=== PATIENT | female | born 1990 | race Caucasian/White ===

== ENCOUNTER 2017-01-17 14:53 | Emergency (ER) | payer OTHER ==
[2017-01-17 15:11] VITALS: BP 118/73
--- NOTE | 2017-01-17 15:16 | UC ---
Shoulder Pain HPI - HPI Summary HPI Summary: 26 YEAR OLD FEMALE PRESENTS WITH LEFT SHOULDER PAIN SECONDARY TO WRESTLING. - History of Current Complaint Chief Complaint: UCUpperExtremity Stated Complaint: SHOULDER INJURY Time Seen by Provider: 01/17/17 15:15 Hx Obtained From: Patient Hx Last Menstrual Period: 01/15/17 Onset/Duration: Lasting Days Timing: Constant Severity Initially: Moderate Severity Currently: Moderate Location Of Pain: Is Diffuse Pain Scale Used: 0-10 Numeric - 5 Aggravating Factor(s): Movement - Allergies/Home Medications Allergies/Adverse Reactions: Allergies Allergy/AdvReac Type Severity Reaction Status Date / Time No Known Allergies Allergy Verified 09/06/15 20:08 PMH/Surg Hx/FS Hx/Imm Hx Previously Healthy: Yes - Surgical History Surgical History: Yes Surgery Procedure, Year, and Place: Appendectomy - Family History Known Family History: Positive: None - Social History Alcohol Use: Occasionally Substance Use Type: None Smoking Status (MU): Current Every Day Smoker Type: Cigarettes Amount Used/How Often: 5 cigs/day Length of Time of Smoking/Using Tobacco: 6 years Have You Smoked in the Last Year: Yes Household Exposure Type: Cigarettes - Immunization History Most Recent Influenza Vaccination: 03/04/13 Most Recent Tetanus Shot: 03/04/13 Most Recent Pneumonia Vaccination: none Review of Systems Constitutional: Negative Skin: Negative Eyes: Negative ENT: Negative Respiratory: Negative Cardiovascular: Negative Gastrointestinal: Negative Genitourinary: Negative Motor: Negative Neurovascular: Negative Musculoskeletal: Other: - LEFT SHOULDER PAIN Neurological: Negative Psychological: Negative All Other Systems Reviewed And Are Negative: Yes Physical Exam Triage Information Reviewed: Yes Vital Signs: Initial Vital Signs Temp 36.8 C 01/17/17 15:06 Pulse 55 01/17/17 15:06 Resp 18 01/17/17 15:06 BP 118/73 01/17/17 15:06 Pulse Ox 100 01/17/17 15:06 Eye Exam: Normal ENT Exam: Normal Dental Exam: Normal Neck exam: Normal Neck: Positive: 1 Respiratory Exam: Normal Cardiovascular Exam: Normal Abdominal Exam: Normal Musculoskeletal: Positive: Other: - LEFT SHOULDER PAIN Neurological Exam: Normal Psychological Exam: Normal Skin Exam: Normal Shoulder Course/Dx - Differential Dx/Diagnosis Provider Diagnoses: LEFT SHOULDER PAIN Discharge - Discharge Plan Condition: Stable Disposition: HOME Prescriptions: Ibuprofen TAB* [Motrin TAB* 800 MG] 800 mg PO Q6H #30 tab Methocarbamol TAB* [Robaxin 500 MG TAB*] 500 mg PO TID PRN #30 tab PRN Reason: Spasms - Back Patient Education Materials: Shoulder Sprain (ED) Referrals: No Primary Care Phys,NOPCP [Primary Care Provider] - Arin Liao MD [Medical Doctor] -
--- NOTE | 2017-01-17 15:48 | RAD ---
INDICATION: Fall COMPARISON: None TECHNIQUE: Routine frontal, Y and axial views were obtained. FINDINGS: The bony structures, joint spaces, and soft tissues are normal for age. IMPRESSION: NEGATIVE EXAMINATION.
== END 2017-01-17 16:00 | disposition home or self-care (01) ==
LOC: UCEAST 14:53
DX: M25.512 Pain in left shoulder (principal); F17.210 Nicotine dependence, cigarettes, uncomplicated
CPT/HCPCS: 99212; G0463

== ENCOUNTER 2017-01-23 17:19 | Emergency (ER) | payer OTHER ==
[2017-01-23 18:08] VITALS: BP 104/75
--- NOTE | 2017-01-23 19:53 | ED ---
Upper Extremity Pain - HPI Summary HPI Summary: Patient presents to the with CC of left shoulder pain x 8 days after a wrestling injury. Denies numbness, tingling, color or temperature changes. She is otherwise healthy. She was seen last week and given a muscle relaxer as well as instructions for ibuprofen and rest. Note given for 1 week out of work. She is requesting light duty at this time. She feels the pain is located discretely over the anterior shoulder. Denies ROM limitations, but endorses pain with palpation and certain movements. Lachmans negative. Neer, yerguson and bicep tests all negative. - History of Current Complaint Chief Complaint: UCUpperExtremity Stated Complaint: recheck shoulder injury Time Seen by Provider: 01/23/17 19:26 Hx Obtained From: Patient Hx Last Menstrual Period: 01/06/17 Mechanism Of Injury: Direct Blow Onset/Duration: Started Days Ago Timing: Constant Severity Initially: Moderate Severity Currently: Moderate Pain Location: Shoulder Character: Aching Aggravating Factor(s): Movement, Flexion, Extension, Internal/External Rotation Alleviating Factor(s): Rest, Ice Associated Signs & Symptoms: Positive: Negative Related History: Similar Episode/Dx As, Dominant Hand Right - Risk Factors Non-Orthopedic Risk Factor: Negative DVT Risk Factors: Negative Septic Arthritis Risk Factor: Negative Compartment Syndrome Risk Factors: Pain - Allergies/Home Medications Allergies/Adverse Reactions: Allergies Allergy/AdvReac Type Severity Reaction Status Date / Time No Known Allergies Allergy Verified 01/23/17 18:08 PMH/Surg Hx/FS Hx/Imm Hx Previously Healthy: Yes Endocrine/Hematology History: Denies: Hx Diabetes, Hx Thyroid Disease Cardiovascular History: Denies: Hx Hypertension Respiratory History: Denies: Hx Asthma, Hx Chronic Obstructive Pulmonary Disease (COPD) GI History: Denies: Hx Ulcer - Surgical History Surgery Procedure, Year, and Place: Appendectomy - Immunization History Hx Pertussis Vaccination: No Immunizations Up to Date: Unable to Obtain/Confirm Infectious Disease History: No Infectious Disease History: Denies: Hx Clostridium Difficile, Hx Hepatitis, Hx Human Immunodeficiency Virus (HIV), Hx of Known/Suspected MRSA, Hx Shingles, Hx Tuberculosis, Hx Known/ Suspected VRE, Hx Known/Suspected VRSA, History Other Infectious Disease, Traveled Outside the [place] in Last 30 Days - Family History Known Family History: Positive: None - Social History Occupation: Employed Part-time Lives: With Family Alcohol Use: Occasionally Hx Substance Use: No Substance Use Type: Reports: None Hx Tobacco Use: Yes Smoking Status (MU): Current Every Day Smoker Type: Cigarettes Amount Used/How Often: 5 cigs/day Length of Time of Smoking/Using Tobacco: 6 years Have You Smoked in the Last Year: Yes Review of Systems Constitutional: Negative Eyes: Negative Cardiovascular: Negative Respiratory: Negative Positive: no symptoms reported, see HPI Positive: Arthralgia - left shoulder pain Skin: Negative Neurological: Negative Psychological: Normal All Other Systems Reviewed And Are Negative: Yes Physical Exam Triage Information Reviewed: Yes Vital Signs On Initial Exam: Initial Vitals Temp Pulse Resp BP Pulse Ox 99.3 F 88 16 104/75 100 01/23/17 18:03 01/23/17 18:03 01/23/17 18:03 01/23/17 18:03 01/23/17 18:03 Vital Signs Reviewed: Yes Appearance: Positive: Well-Appearing, Well-Nourished Skin: Positive: Warm, Skin Color Reflects Adequate Perfusion Head/Face: Positive: Normal Head/Face Inspection Eyes: Positive: EOMI, SHANE, Conjunctiva Clear Neck: Positive: Supple, No Lymphadenopathy Respiratory/Lung Sounds: Positive: Clear to Auscultation, Breath Sounds Present Cardiovascular: Positive: RRR, Pulses are Symmetrical in both Upper and Lower Extremities Musculoskeletal: Positive: Strength/ROM Intact, Pain @ - anterior left shoulder / speeds test/ yerguson/ neer test all negative. Neurological: Positive: Speech Normal. Negative: Pronator Drift Present Psychiatric: Positive: Normal AVPU Assessment: Alert Diagnostics - Vital Signs Vital Signs Temp Pulse Resp BP Pulse Ox 01/23/17 18:03 99.3 F 88 16 104/75 100 - Laboratory Lab Statement: Any lab studies that have been ordered have been reviewed, and results considered in the medical decision making process. Course/Dx - Course Course Of Treatment: Patient is evaluated for left shoulder pain 1 week s/p injury. She denies color changes, temperature changes, numbness or tingling. She is given a note for work and ortho referral given. Xray obtained last week and negative. She was given muscle relaxers at the time and she is encouraged to continue. - Diagnoses Differential Diagnosis/HQI/PQRI: Positive: Fracture (Open), Fracture (Closed), Strain, Sprain Provider Diagnoses: Shoulder pain Discharge - Discharge Plan Condition: Stable Disposition: HOME Patient Education Materials: Shoulder Pain (ED) Forms: *Work Release Referrals: Hayden Russo MD [Medical Doctor] - No Primary Care Phys,NOPCP [Primary Care Provider] - Additional Instructions: Ibuprofen 600mg three times daily Continue with muscle relaxer as needed I have given you a referral to ortho - call for appt. Note given for work
== END 2017-01-23 20:10 | disposition home or self-care (01) ==
LOC: UCEAST 17:19
DX: M25.512 Pain in left shoulder (principal); F17.210 Nicotine dependence, cigarettes, uncomplicated
CPT/HCPCS: 99211; G0463

== ENCOUNTER 2017-07-17 13:01 | Emergency (ER) | payer OTHER ==
[2017-07-17 13:21] VITALS: BP 105/53
--- NOTE | 2017-07-17 14:31 | UC ---
Eye Complaint HPI - HPI Summary HPI Summary: 27 y/o female with 4 yr old at home, works at [employer], c/o R eye itchy, gritty feeling, woke this am- swelling, redness, drainage, swollen shut, ? decreased vision, feels like "snot " in eye. no other sick contacts. - History of Current Complaint Chief Complaint: UCEye Stated Complaint: EYE ISSUE Time Seen by Provider: 07/17/17 14:29 Hx Obtained From: Patient Hx Last Menstrual Period: 06/15/2017 ?: No Onset/Duration: Sudden Onset, Lasting Hours Timing: Constant Severity Initially: Moderate Severity Currently: Moderate Pain Intensity: 4 Pain Scale Used: 0-10 Numeric - Allergies/Home Medications Allergies/Adverse Reactions: Allergies Allergy/AdvReac Type Severity Reaction Status Date / Time camphor [From Vicks Vaporub] Allergy Anaphylatic Verified 07/17/17 13:14 Shock eucalyptus Allergy Anaphylatic Verified 07/17/17 13:14 [From Vicks Vaporub] Shock menthol [From Vicks Vaporub] Allergy Anaphylatic Verified 07/17/17 13:14 Shock petrolatum,white Allergy Anaphylatic Verified 07/17/17 13:14 [From Vicks Vaporub] Shock turpentine oil Allergy Anaphylatic Verified 07/17/17 13:14 [From Vicks Vaporub] Shock PMH/Surg Hx/FS Hx/Imm Hx Previously Healthy: Yes - Surgical History Surgical History: Yes Surgery Procedure, Year, and Place: Appendectomy - Family History Known Family History: Positive: None - Social History Alcohol Use: Occasionally Substance Use Type: None Smoking Status (MU): Current Every Day Smoker Type: Cigarettes Amount Used/How Often: 5 cigs/day Length of Time of Smoking/Using Tobacco: 6 years Have You Smoked in the Last Year: Yes Household Exposure Type: Cigarettes - Immunization History Most Recent Influenza Vaccination: 03/04/13 Most Recent Tetanus Shot: 03/04/13 Most Recent Pneumonia Vaccination: none Review of Systems Eyes: Blurred Vision, Drainage, Eye Redness Musculoskeletal: Negative Neurological: Negative Psychological: Negative Is Patient Immunocompromised?: No All Other Systems Reviewed And Are Negative: Yes Physical Exam Triage Information Reviewed: Yes Appearance: Well-Appearing, No Pain Distress, Well-Nourished Vital Signs: Initial Vital Signs Temp 97.9 F 07/17/17 13:12 Pulse 74 07/17/17 13:12 Resp 18 07/17/17 13:12 BP 105/53 07/17/17 13:12 Pulse Ox 100 07/17/17 13:12 Vital Signs Reviewed: Yes Eyes: Positive: Conjunctiva Inflamed, Discharge - purulent, Other: - upper eyelid swelling, mild, no periorbital edema, no erythema aroudn eye noted, EMOI , PERRL, diffuse erythema. L eye normal. ENT: Positive: Pharynx normal, TMs normal. Negative: Nasal congestion Neck: Positive: Supple, Nontender, No Lymphadenopathy Eye Complaint Course/Dx - Course Course Of Treatment: conjunctivitis- abx given, follow up with PCP - Differential Dx/Diagnosis Differential Diagnosis/HQI/PQRI: Conjunctivitis Provider Diagnoses: conjunctivitis R eye Discharge - Sign-Out/Discharge Documenting (check all that apply): Discharge - Discharge Plan Condition: Good Disposition: HOME Prescriptions: Ciprofloxacin 0.3% OPTH.CLARY* [Cipro 0.3% Opth*] 1 drop RIGHT EYE Q3H #1 btl Patient Education Materials: Ciprofloxacin (Into the eye), Conjunctivitis (ED) Forms: *Work Release Referrals: No Primary Care Phys,NOPCP [Primary Care Provider] - Additional Instructions: - Warm compresses to help with drainage - Eye drops every 3 hours while awake until symptoms cleared for 24 hours BUT for at least 5 days - Avoid contact with children, immunocompromised. highly contagious. Change bedding, wash cloths - Billing Disposition and Condition Condition: GOOD Disposition: HOME
[2017-07-17] MEDS ORDERED: Ciprofloxacin 0.3% OPTH.SOL* 2.5 ML BTL RIGHT EYE ONE (14:46)
== END 2017-07-17 15:06 | disposition home or self-care (01) ==
LOC: UCEAST 13:01
DX: H10.31 Unspecified acute conjunctivitis, right eye (principal); F17.210 Nicotine dependence, cigarettes, uncomplicated
CPT/HCPCS: 99212; A9270-GY; G0463

== ENCOUNTER 2017-08-15 18:17 | Emergency (ER) | payer OTHER ==
[2017-08-15 18:24] VITALS: BP 115/67
--- NOTE | 2017-08-15 19:16 | UC ---
Throat Pain/Nasal Todd HPI - HPI Summary HPI Summary: 27 y/o female presents to the urgent care c/o sore throat, hoarseness, sinus congestion w/ clear nasal discharge and HAMLIN for the past 3 days. Pt states she is 10 weeks and she has Hx of Migraine HAMLIN. HAMLIN is 10/07. LMP: 2017. She usually take Excedrin, but since she is her OBGYN told her not to take it. Pt has not taking anything for the HAMLIN that started today. Pt denies fever, dizziness, cough, SOB , chest pain, abdominal pain, N/V/D - History of Current Complaint Chief Complaint: UCGeneralIllness Stated Complaint: HEADACHE,ST,COUGH Time Seen by Provider: 08/15/17 19:15 Hx Obtained From: Patient Hx Last Menstrual Period: 06/14/17 ?: Yes Onset/Duration: Gradual Onset, Lasting Days - 2 days, Still Present, Worse Since - today Severity: Moderate Pain Intensity: 6 Pain Scale Used: 0-10 Numeric Cough: None Associated Signs & Symptoms: Positive: Dysphagia, Sinus Discomfort, Nasal Discharge. Negative: Fever Related History: Seasonal Allergies - Epiglottits Risk Factors Epiglottis Risk Factors: Negative - Allergies/Home Medications Allergies/Adverse Reactions: Allergies Allergy/AdvReac Type Severity Reaction Status Date / Time camphor [From Vicks Vaporub] Allergy Anaphylatic Verified 08/15/17 18:25 Shock eucalyptus Allergy Anaphylatic Verified 08/15/17 18:25 [From Vicks Vaporub] Shock menthol [From Vicks Vaporub] Allergy Anaphylatic Verified 08/15/17 18:25 Shock petrolatum,white Allergy Anaphylatic Verified 08/15/17 18:25 [From Vicks Vaporub] Shock turpentine oil Allergy Anaphylatic Verified 08/15/17 18:25 [From Vicks Vaporub] Shock Home Medications: Home Medications NK [No Home Medications Reported] 08/15/17 [History Confirmed 08/15/17] PMH/Surg Hx/FS Hx/Imm Hx Previously Healthy: Yes Neurological History: Migraine - Surgical History Surgical History: Yes Surgery Procedure, Year, and Place: Appendectomy - Family History Family History: DVT - Social History Occupation: Employed Full-time Lives: With Family Alcohol Use: None Substance Use Type: None Smoking Status (MU): Former Smoker Type: Cigarettes Amount Used/How Often: 5 cigs/day Length of Time of Smoking/Using Tobacco: 6 years Have You Smoked in the Last Year: Yes Household Exposure Type: Cigarettes - Immunization History Most Recent Influenza Vaccination: 03/04/13 Most Recent Tetanus Shot: 03/04/13 Most Recent Pneumonia Vaccination: none Review of Systems Constitutional: Negative Skin: Negative ENT: Sore Throat, Nasal Discharge, Sinus Congestion, Sinus Pain/Tenderness Respiratory: Negative Cardiovascular: Negative Gastrointestinal: Negative Genitourinary: Negative Motor: Negative Neurovascular: Negative Musculoskeletal: Negative Neurological: Headache Is Patient Immunocompromised?: No All Other Systems Reviewed And Are Negative: Yes Physical Exam - Summary Physical Exam Summary: Vital Signs Reviewed: Yes General: well developed, well nourished female sitting in the examining table w/o any apparent distress Eyes: Positive: Conjunctiva Clear - PERRLA, EOMI, fundi grossly normal ENT: Positive: Normal ENT inspection, Hearing grossly normal, Pharynx mild erythema, no exudate, Nasal congestion - edematous and erythematous nasal mucosa, Nasal drainage - clear drainage, Mild tenderness over the maxiallary sinuses on percussion. TMs normal. Negative: Tonsillar swelling, Tonsillar exudate Neck: Positive: Supple, Nontender, No Lymphadenopathy Respiratory: no orthopnea or dyspnea. Able to speak in full sentences, no retractions or accessory muscle use, no tripod position, stridor, or head bobbing. CTA bilaterally, no wheezing, no rhonchi, no rales, no crackles. Cardiovascular: Positive: RRR, No Murmur, Pulses Normal, Brisk Capillary Refill Abdomen Description: Positive: Nontender, No Organomegaly, Soft. Negative: CVA Tenderness (R), CVA Tenderness (L) Bowel Sounds: Positive: Present Musculoskeletal Exam: Normal Musculoskeletal: Positive: Strength Intact, ROM Intact, No Edema Neurological Exam: Normal Psychological Exam: Normal Skin Exam: Normal Triage Information Reviewed: Yes Vital Signs: Initial Vital Signs Temp 98.3 F 08/15/17 18:19 Pulse 84 08/15/17 18:19 Resp 16 08/15/17 18:19 BP 115/67 08/15/17 18:19 Pulse Ox 99 08/15/17 18:19 Throat Pain/Nasal Course/Dx - Course Course Of Treatment: 27 y/o female presents to the urgent care c/o sore throat, hoarseness, sinus congestion w/ clear nasal discharge and HAMLIN for the past 3 days. Pt states she is 10 weeks and she has Hx of Migraine HAMLIN. HAMLIN is 10/07. LMP: 06/09/2017. She usually take Excedrin, but since she is her OBGYN told her not to take it. Pt has not taking anything for the HAMLIN that started today. Pt denies fever, dizziness, cough, SOB , chest pain, abdominal pain, N/V/D. Hx obtained. Pt w/ URI on examination.Pt Advised to take Tylenol PO to alleviates symptoms of pain and swelling. To use saline drops to clear her sinuses. Advised on hand washing to avoid spreading. Pt advised to rest, eat well and avoid strenuous exercise. If symptoms do not improve or worsen advised to return to the urgent care or f/u with her PCP for further evaluation and treatment. Pt understood and agreed w/ plan of care. - Differential Dx/Diagnosis Differential Diagnosis/HQI/PQRI: Laryngitis, Pharyngitis, Sinusitis, URI Provider Diagnoses: 1- Upper respiratory infection. 2- headache Discharge - Sign-Out/Discharge Documenting (check all that apply): Discharge - Discharge Plan Condition: Stable Disposition: HOME Patient Education Materials: Upper Respiratory Infection (ED), Acute Headache ( ED) Forms: *Work Release Referrals: [facility] REFERRAL [Outside] - 2 Days Additional Instructions: 1- Please increase fluid intake and rest. 2-Take Tylenol PO to alleviate headache 3- Use Salin drops. apply 2 drops on each nostril to clear sinuses 4-Return to the clinic or PCP 2-3 days if symptoms do not improve for further management and treatment - Billing Disposition and Condition Condition: STABLE Disposition: HOME
== END 2017-08-15 19:50 | disposition home or self-care (01) ==
LOC: UCEAST 18:17
DX: O26.891 Other specified pregnancy related conditions, first trimester (principal); J06.9 Acute upper respiratory infection, unspecified; R51 Headache; Z3A.10 10 weeks gestation of pregnancy; Z87.891 Personal history of nicotine dependence
CPT/HCPCS: 87651; 99211; G0463

== ENCOUNTER 2017-12-18 13:05 | Emergency (ER) | payer OTHER ==
[2017-12-18 13:29] VITALS: BP 100/62
--- NOTE | 2017-12-18 13:46 | UC ---
Eye Complaint HPI - HPI Summary HPI Summary: 27 yo female presents with left eye redness, drainage, and itchiness since yesterday. She tells me that yesterday morning she woke up with her eye symptoms , but this morning seemed worse. Denies fever, chills, recent illness, eye trauma/injury, or vision changes. She is currently . - History of Current Complaint Chief Complaint: UCEye Stated Complaint: EYE ISSUE Time Seen by Provider: 12/18/17 13:46 Hx Obtained From: Patient Hx Last Menstrual Period: 06/14/17 Onset/Duration: Sudden Onset Severity Currently: None Pain Intensity: 0 - Allergies/Home Medications Allergies/Adverse Reactions: Allergies Allergy/AdvReac Type Severity Reaction Status Date / Time camphor [From Vicks Vaporub] Allergy Anaphylatic Verified 12/18/17 13:29 Shock eucalyptus Allergy Anaphylatic Verified 12/18/17 13:29 [From Vicks Vaporub] Shock menthol [From Vicks Vaporub] Allergy Anaphylatic Verified 12/18/17 13:29 Shock petrolatum,white Allergy Anaphylatic Verified 12/18/17 13:29 [From Vicks Vaporub] Shock turpentine oil Allergy Anaphylatic Verified 12/18/17 13:29 [From Vicks Vaporub] Shock Home Medications: Home Medications Acetaminophen [APAP] 650 mg PO 12/18/17 [History] Ranitidine TAB (NF) [Zantac TAB (NF)] 150 mg PO BID 12/18/17 [History Confirmed 12/18/17] PMH/Surg Hx/FS Hx/Imm Hx - Additional Past Medical History Additional PMH: None - Surgical History Surgical History: Yes Surgery Procedure, Year, and Place: Appendectomy - Family History Known Family History: Positive: None Family History: DVT - Social History Occupation: Employed Full-time Lives: With Family Alcohol Use: None Substance Use Type: None Smoking Status (MU): Former Smoker Type: Cigarettes Amount Used/How Often: 5 cigs/day Length of Time of Smoking/Using Tobacco: 6 years Have You Smoked in the Last Year: Yes Household Exposure Type: Cigarettes - Immunization History Most Recent Influenza Vaccination: 03/04/13 Most Recent Tetanus Shot: 03/04/13 Most Recent Pneumonia Vaccination: none Review of Systems Constitutional: Negative Skin: Negative Eyes: Drainage, Eye Redness ENT: Negative Respiratory: Negative Cardiovascular: Negative Gastrointestinal: Negative Neurological: Negative Psychological: Negative All Other Systems Reviewed And Are Negative: Yes Physical Exam - Summary Physical Exam Summary: GENERAL: WDWN. No pain distress. SKIN: No rashes, sores, lesions, or open wounds. HEENT: Head: AT/NC Eyes: EOM intact. PERRLA. LEFT EYE: Mild scleral injection. Conjunctivia with mild erythema and inflammation. Mild clear/yellow discharge. RIGHT EYE: Conjunctiva clear without inflammation or discharge. No FBs appreciated Nose: NTTP maxillary and frontal sinus. NECK: Supple. Nontender. No lymphadenopathy. CHEST: No accessory muscle use. Breathing comfortably and in no distress. CV: Pulses intact. Cap refill <2seconds NEURO: Alert. CN II-XII grossly intact. PSYCH: Age appropriate behavior. Triage Information Reviewed: Yes Vital Signs: Initial Vital Signs Temp 97.5 F 12/18/17 13:26 Pulse 77 12/18/17 13:26 Resp 18 12/18/17 13:26 BP 100/62 12/18/17 13:26 Pulse Ox 98 12/18/17 13:26 Vital Signs Reviewed: Yes Eye Complaint Course/Dx - Course Course Of Treatment: Left eye conjunctivitis - Differential Dx/Diagnosis Provider Diagnoses: Left eye conjunctivitis Discharge - Sign-Out/Discharge Documenting (check all that apply): Patient Departure All imaging exams completed and their final reports reviewed: No Studies - Discharge Plan Condition: Stable Disposition: HOME Prescriptions: Ciprofloxacin 0.3% OPTH.CLARY* [Cipro 0.3% Opth*] 1 drop LEFT EYE QID #1 btl Patient Education Materials: Conjunctivitis (ED) Referrals: No Primary Care Phys,NOPCP [Primary Care Provider] - Additional Instructions: If you develop a fever, shortness of breath, chest pain, new or worsening symptoms - please call your PCP or go to the ED. - Billing Disposition and Condition Condition: STABLE Disposition: Home
== END 2017-12-18 14:07 | disposition home or self-care (01) ==
LOC: UCEAST 13:05
DX: H10.9 Unspecified conjunctivitis (principal); Z87.891 Personal history of nicotine dependence; Z88.8 Allergy status to other drugs, medicaments and biological substances
CPT/HCPCS: 99202; G0463

== ENCOUNTER 2018-03-14 20:50 | Inpatient (IN) | payer OTHER ==
--- NOTE | 2018-03-14 21:15 | HP ---
General Information - Reason for Visit contractions - General Information Maternal Age: 27 Grav: 2 Para: 1 SAB: 0 IEA: 0 Estimated Due Date: 03/15/18 Determined By: LMP Maternal Blood Type and Rh: O Positive - Results this Serology/RPR Result: Non-Reactive Rubella Result: Immune HBsAg Result: Negative HIV Result: Negative GBS Culture Result: Negative Past Medical History Delivery History: Hx Uncomplicated Vaginal Delivery Past Medical History Comment: migraine-with aura Past Surgical History Comment: appendectomy 1999 Family History Comment: F with DVT MGM with breast cancer - Antepartal Records Antepartal Records: Reviewed, Uncomplicated Review of Systems Constitutional: Uncomfortable CV Complaint: No Respiratory: Shortness of Breath: No Gastrointestinal: No Nausea/Vomiting, Diarrhea Genitourinary: No Leaking Fluid Musculoskeletal: Contractions Neurological: No Headache Movement: Normal Exam Allergies/Adverse Reactions: Allergies camphor [From Vicks Vaporub] Allergy (Verified 12/18/17 13:29) Anaphylatic Shock eucalyptus [From Vicks Vaporub] Allergy (Verified 12/18/17 13:29) Anaphylatic Shock menthol [From Vicks Vaporub] Allergy (Verified 12/18/17 13:29) Anaphylatic Shock petrolatum,white [From Vicks Vaporub] Allergy (Verified 12/18/17 13:29) Anaphylatic Shock turpentine oil [From Vicks Vaporub] Allergy (Verified 12/18/17 13:29) Anaphylatic Shock - Measurements Height: 5 ft 3 in Weight: 178 lb Body Mass Index (BMI): 31.5 Pre- Weight: 145 lb - Exam Breast: - - soft, no masses Extremities: No Edema Heart: Normal Rhythm/Heart Sounds HEENT: No Significant Findings Lungs: Clear Bilaterally Reflexes: DTR 2+ Thyroid: No Thyromegaly - Ultrasound/Biophysical Profile Ultrasound Status: Not Done Targeted Exam Findings Estimated Weight: 7 lbs Cervical Exam: 4cm Effacement: 70% Station: -1 Presenting Part: Vertex Membrane Status: Intact EFM Findings - External Monitor Findings Baseline Heart Rate: 125 External Monitor Findings: No Pattern of Variable or Late Decelerations, Variability Moderate, Baseline Stable Contractions: Moderate, 45-90 Seconds Contraction Frequency: q 2-4 mins Assessment/Plan - Assessment at 39 w 6 day in labor - Plan Plan: Admit - Anticipate Vaginal Delivery Plan Comment: wants epidural - Date/Time of Admission Date of Admission: 03/14/18 Time of Admission: 21:17
[2018-03-14 21:21] LABS: ABS Basophils 0.1 10^3/ul (0-0.2); ABS Eosinophils 0.1 10^3/ul (0-0.6); ABS Lymphocytes 2.2 10^3/ul (1.0-4.8); ABS Neutrophils 8.7 10^3/ul (1.5-7.7); ABS Nucleated RBC 0 10^3/ul; Eosinophil % 1.1 % (0-6); Hematocrit 35 % (35-47); Hemoglobin 11.7 g/dl (12.0-16.0); Mean Corpuscular HGB Conc 34 g/dl (31-36); Mean Corpuscular Hemoglobin 31 pg (27-31); Mean Corpuscular Volume 91 fL (80-97); Mean Platelet Volume 7.3 fL (7.4-10.4); Nucleated Red Blood Cells % 0; Platelet Count 325 10^3/ul (150-450); Red Cell Distribution Width 14 % (10.5-15); White Blood Count 12.2 10^3/ul (3.5-10.8)
[2018-03-14] MEDS ORDERED: OBEPIDURAL* 250 ML EPIDURAL ONE (21:22)
[2018-03-14] MEDS ORDERED: Famotidine TAB* 20 MG PO PRN (22:15)
[2018-03-14] MEDS ORDERED: Phenylephrine IV* 40 MCG/ML 10 ML SYRINGE IV PUSH PRN ×2 (22:15)
[2018-03-14] MEDS ORDERED: Sodium Citrate/Citric Acid* 15 ML UDC PO PRN (22:15)
[2018-03-14] MEDS ORDERED: OBEPIDURAL* 250 ML EPIDURAL SCH (23:00)
[2018-03-14] MEDS ORDERED: Terbutaline INJ* 1 MG/ML VIAL ONE (23:17)
[2018-03-15] MEDS ORDERED: Terbutaline INJ* 1 MG/ML VIAL SUBCUT ONE (00:02)
--- NOTE | 2018-03-15 00:04 | PN ---
Progress Note - Progress Note Date of Service: 03/14/18 Note: Asked to evaluate pt for ROM after concern for cord prolapse due to repeated variables and some prolonged decels. These completely resolved after pt received terbutaline but she still had a bulging bag with the head high. Contractions decreased from q2min to q4min. Cx:/-3, suspect OP, no pulsations felt around head and therefore AROM was performed. FHT remained Cat 1 after ROM. Pt repositioned. Will continue to monitor.
[2018-03-15] MEDS ORDERED: Oxytocin in LR* 20 UNITS/1,000 ML BAG IVPB ONE (01:56)
[2018-03-15] MEDS ORDERED: Ibuprofen TAB* 600 MG ONE (02:10)
[2018-03-15] MEDS ORDERED: Dibucaine 1% 28.35 GM TUBE PR PRN (02:13)
[2018-03-15] MEDS ORDERED: Glycerin ADULT SUPP PR PRN (02:13)
[2018-03-15] MEDS ORDERED: Misoprostol TAB* 200 MCG PR ONE (02:13)
[2018-03-15] MEDS ORDERED: Witch Hazel PAD* JAR TOPICAL PRN (02:13)
--- NOTE | 2018-03-15 02:27 | PROCNOTE ---
[facility] OB: Delivery Note - Delivery A Date of : 03/15/18 Time of : 01:47 [place] Sex: Male Weight at : 8 lb 5 oz Score 1 Minute: 8 Score 5 Minutes: 9 Gestational Age in Weeks and Days at Delivery: 40 Weeks and 0 Days Delivery Method: Spontaneous Vaginal Labor: Spontaneous Did Patient attempt ?: N/A, No Previous Amniotic Fluid: Clear Estimated Blood Loss: 400 Anesthesia/Analgesia: CEI for Labor Anesthesia Comment: Dr. Reid Delivered By: Gabrielle Burgess - Nursery Level of Nursery: Regular/Bedside - Perineum Perineal Injury: None/Intact - Additional Delivery Notes Additional Delivery Notes: SVB LMC, ADELINA, over intact perineum. Infant pink with stimulation, bulb suction. Placenta Chun. Fundus initially firm but became boggy, massage, IV with pitocin initiated. Cytotec 800mcg given at 0158. EBL 400cc. Mother and baby in good condition
[2018-03-15] MEDS ORDERED: Oxytocin in LR* 20 UNITS/1,000 ML BAG IVPB SCH (03:00)
[2018-03-15] MEDS: Acetaminophen TAB* 325 MG PO PRN ×2 (09:15→14:03)
[2018-03-15] MEDS: Ibuprofen TAB* 600 MG PO PRN ×2 (09:41→16:15)
[2018-03-15] MEDS: Docusate CAP* 100 MG PO SCH ×3 (09:43→20:39)
[2018-03-16] MEDS: Ibuprofen TAB* 600 MG PO PRN ×3 (04:58→21:46)
[2018-03-16 06:27] LABS: Hematocrit 31 % (35-47); Hemoglobin 10.7 g/dl (12.0-16.0); Mean Corpuscular HGB Conc 34 g/dl (31-36); Mean Corpuscular Hemoglobin 32 pg (27-31); Mean Corpuscular Volume 92 fL (80-97); Mean Platelet Volume 7.2 fL (7.4-10.4); Platelet Count 291 10^3/ul (150-450); Red Blood Count 3.39 10^6/ul (4.00-5.40); Red Cell Distribution Width 15 % (10.5-15); White Blood Count 12.7 10^3/ul (3.5-10.8)
[2018-03-16] MEDS: Docusate CAP* 100 MG PO SCH ×3 (08:21→21:45)
[2018-03-16] MEDS: Acetaminophen TAB* 325 MG PO PRN (19:22)
[2018-03-16] MEDS: Ferrous Gluconate TAB* 324 MG TAB PO SCH ×2 (21:52→22:03)
[2018-03-17] MEDS: Ibuprofen TAB* 600 MG PO PRN (04:01)
[2018-03-17] MEDS: Acetaminophen TAB* 325 MG PO PRN (06:45)
[2018-03-17 08:31] VITALS: BP 103/65
== END 2018-03-17 10:58 | disposition home or self-care (01) | DRG 560 ==
LOC: MCHOBOUT 20:50 → MCHOB 21:06
PROVIDERS: ADMIT Midwife; ATTEND Midwife
PROC: 10907ZC Drainage of Amniotic Fluid, Therapeutic from Products of Conception, Via Natural or Artificial Opening (ICD-10-PCS; principal; 2018-03-14)
PROC: 4A1HXCZ Monitoring of Products of Conception, Cardiac Rate, External Approach (ICD-10-PCS; 2018-03-14)
PROC: 10E0XZZ Delivery of Products of Conception, External Approach (ICD-10-PCS; 2018-03-15)
DX: O48.0 Post-term pregnancy (principal); O99.42 Diseases of the circulatory system complicating childbirth; Z37.0 Single live birth; I49.8 Other specified cardiac arrhythmias; O76 Abnormality in fetal heart rate and rhythm complicating labor and delivery; Z3A.40 40 weeks gestation of pregnancy
CPT/HCPCS: 36415; 85025; 85027; 86850; 86900; 86901; A9270-GY; J3105

== ENCOUNTER 2019-10-04 02:21 | Inpatient (IN) ==
[2019-10-04] MEDS ORDERED: Lactated Ringers 1000 ml BAG 1,000 ML IV ONE ×2 (04:07→05:50)
[2019-10-04 04:40] LABS: ABS Eosinophils 0.1 10^3/ul (0-0.6); ABS Lymphocytes 1.9 10^3/ul (1.0-4.8); ABS Monocytes 0.4 10^3/ul (0-0.8); Eosinophil % 0.7 %; Hematocrit 33 % (35-47); Hemoglobin 11.6 g/dL (12.0-16.0); Lymphocyte % 21.6 %; Mean Corpuscular HGB Conc 35 g/dL (31-36); Mean Corpuscular Hemoglobin 32 pg (27-31); Mean Corpuscular Volume 92 fL (80-97); Platelet Count 247 10^3/uL (150-450); Red Cell Distribution Width 13 % (10-15)
[2019-10-04 04:55] LABS: Urine Benzodiazepine Screen None Detected (None Detect); Urine Opiates Screen None Detected (None Detect)
[2019-10-04] MEDS ORDERED: OBEPIDURAL 250 ML EPIDURAL ONE (05:06)
[2019-10-04] MEDS ORDERED: Sodium Citrate/Citric Acid LIQ 15 ML UDC PO PRN (05:50)
[2019-10-04] MEDS ORDERED: Phenylephrine 40 mcg/mL 10mL (400mcg) SYRINGE IV PUSH PRN (05:50)
[2019-10-04] MEDS ORDERED: OBEPIDURAL 250 ML EPIDURAL SCH (06:00)
[2019-10-04] MEDS ORDERED: Oxytocin in LR 20 UNITS/1,000 ML BAG IVPB ONE (07:41)
[2019-10-04] MEDS ORDERED: Dibucaine 1% OINT 28.35 GM TUBE PR PRN (08:40)
[2019-10-04] MEDS ORDERED: Glycerin ADULT 2.4 gm SUPP PR PRN (08:40)
[2019-10-04] MEDS ORDERED: Witch Hazel PAD JAR TOPICAL PRN (08:40)
[2019-10-04] MEDS ORDERED: Oxytocin in LR 20 UNITS/1,000 ML BAG IVPB SCH (09:00)
[2019-10-04] MEDS ORDERED: Lactated Ringers 1000 ml BAG 1,000 ML IV SCH (09:00)
[2019-10-05 08:07] LABS: ABS Basophils 0.1 10^3/ul (0-0.2); ABS Eosinophils 0.1 10^3/ul (0-0.6); ABS Lymphocytes 1.9 10^3/ul (1.0-4.8); ABS Monocytes 0.5 10^3/ul (0-0.8); Eosinophil % 0.8 %; Hematocrit 31 % (35-47); Hemoglobin 10.7 g/dL (12.0-16.0); Lymphocyte % 19.4 %; Mean Corpuscular HGB Conc 35 g/dL (31-36); Mean Corpuscular Hemoglobin 32 pg (27-31); Mean Corpuscular Volume 92 fL (80-97); Mean Platelet Volume 7.4 fL (7.4-10.4); Platelet Count 217 10^3/uL (150-450); Red Blood Count 3.34 10^6 /uL (3.70-4.87); Red Cell Distribution Width 14 % (10-15); White Blood Count 9.6 10^3/uL (3.5-10.8)
[2019-10-05 08:09] VITALS: BP 102/65
== END 2019-10-05 12:55 | disposition home or self-care (01) | DRG 560 ==
LOC: MCHOBOUT 02:21 → MCHOB 04:06
PROVIDERS: ADMIT Midwife; ATTEND Midwife

== ENCOUNTER 2024-02-14 10:24 | Inpatient (IN) ==
[2024-02-14 11:36] LABS: ABS Monocytes 0.5 10^3/uL (0.0-0.9); ABS Neutrophils 6.4 10^3/uL (1.5-7.6); ABS Nucleated RBC 0.01 10^3/ul; Eosinophil % 0.4 %; Hematocrit 29.3 % (35-45); Lymphocyte % 13.1 %; Mean Corpuscular Hemoglobin 32.4 pg (27-33); Mean Corpuscular Hgb Conc 34.1 g/dL (31-36); Mean Platelet Volume 7.4 fL (7.5-11.2); Nucleated Red Blood Cells % 0.1 %/100WBC (0.0-0.8); Platelet Count 269 10^3/uL (150-450); Red Blood Count 3.08 10^6/uL (3.63-4.92); Red Cell Distribution Width 13.4 % (12-17); White Blood Count 7.9 10^3/uL (3.8-11.8)
[2024-02-14 11:54] LABS: Urine Creatinine Concentration 192.98 mg/dL (20.00-320.00); Urine TP Creat Ratio 0.29 mg/mg
[2024-02-14 11:55] LABS: Albumin 3.3 g/dL (3.2-5.2); Albumin/Globulin Ratio 1.3 (1-3); Calcium 8.7 mg/dL (8.6-10.3); Creatinine, Serum 0.59 mg/dL (0.51-0.95); Globulin 2.5 g/dL (2-4); Potassium 3.9 mmol/L (3.5-5.0); Total Bilirubin 0.3 mg/dL (0.2-1.0); Total Protein 5.8 g/dL (6.4-8.9); eGFR CKD-EPI 122.7 (>60)
[2024-02-14] MEDS ORDERED: Nalbuphine 10 MG/ML 1 ML VIAL IV PRN (12:55)
[2024-02-14] MEDS ORDERED: Prochlorperazine 5 mg/ml 2 ml VIAL (10 mg) IV PRN (12:55)
[2024-02-14] MEDS ORDERED: Buffered Lidocaine 1% SYRIN 1 ml INTRADERM ONE (12:55)
[2024-02-14] MEDS ORDERED: Lactated Ringers 1000 ml BAG 1,000 ML IV ONE (12:55)
[2024-02-14] MEDS ORDERED: Lidocaine 1% VIAL 10 MG/ML 30 ML VIAL INJ PRN (12:55)
[2024-02-14] MEDS: miSOPROStol 100 mcg TAB ONE (14:24)
[2024-02-14] MEDS ORDERED: Ondansetron 4 mg VIAL 2 MG/ML 2 ml VIAL IV PRN (19:09)
[2024-02-14] MEDS ORDERED: Calcium Carb (TUMS) 500 mg CHEW TAB PO PRN (19:09)
[2024-02-14] MEDS: Oxytocin in LR 20,000 MILLI.UNIT/1,000 ML BAG IV SCH (20:02)
[2024-02-14] MEDS: Lactated Ringers 1000 ml BAG 1,000 ML IV SCH (20:02)
[2024-02-15] MEDS ORDERED: Phenylephrine 40 mcg/mL 10mL (400mcg) SYRINGE ONE (00:11)
[2024-02-15] MEDS ORDERED: Lidocaine 1.5% EPI 1:200,000 30 ML SDV ONE (00:11)
[2024-02-15] MEDS: OBEPIDURAL (200 ML) 200 ML EPIDURAL ONE (00:56)
[2024-02-15 01:39] LABS: Urine Appearance Clear; Urine Bilirubin Negative (Negative); Urine Blood Negative (Negative); Urine Color Light-Yellow; Urine Glucose Negative (Negative); Urine Ketones Negative (Negative); Urine Nitrite Negative (Negative); Urine Protein Negative (Negative); Urine Specific Gravity 1.013 (1.002-1.030); Urine Urobilinogen Negative (Negative); Urine pH 6.5 (5.0-8.0)
[2024-02-15 01:47] LABS: Urine Benzodiazepine Screen None Detected (None Detect); Urine Cannabinoids Screen None Detected (None Detect); Urine Opiates Screen None Detected (None Detect)
[2024-02-15] MEDS ORDERED: ceFAZolin 1 GM in Dextrose 1 GM/50 ML BAG IVPB SCH (06:00)
[2024-02-15] MEDS ORDERED: Sodium Citrate/Citric Acid LIQ 15 ML UDC PO PRN (06:09)
[2024-02-15] MEDS ORDERED: Lactated Ringers 1000 ml BAG 1,000 ML IV ONE (06:09)
[2024-02-15] MEDS ORDERED: Phenylephrine 40 mcg/mL 10mL (400mcg) SYRINGE IV PUSH PRN ×2 (06:09)
[2024-02-15] MEDS ORDERED: Lactated Ringers 1000 ml BAG 1,000 ML IV SCH (07:00)
[2024-02-15] MEDS ORDERED: OBEPIDURAL (200 ML) 200 ML EPIDURAL SCH (07:00)
[2024-02-15] MEDS ORDERED: Glycerin ADULT 2.4 gm SUPP PR PRN ×2 (07:07→07:16)
[2024-02-15] MEDS ORDERED: Witch Hazel PAD JAR TOPICAL PRN (07:07)
[2024-02-15] MEDS ORDERED: Dibucaine 1% OINT 28.35 GM TUBE PR PRN (07:07)
[2024-02-15] MEDS ORDERED: Polyethylene Glycol 3350 17 GM PACKET PO PRN (07:16)
[2024-02-15] MEDS: ceFAZolin 2 GM PREMIX 2 GM/50 ML BAG IV ONE (10:28)
[2024-02-15] MEDS: ceFAZolin 2 GM PREMIX 2 GM/50 ML BAG ONE (10:29)
[2024-02-15] MEDS: Oxytocin in LR 20,000 MILLI.UNIT/1,000 ML BAG IV SCH (10:29)
[2024-02-16 06:47] LABS: ABS Eosinophils 0.1 10^3/uL (0.0-0.5); ABS Lymphocytes 1.4 10^3/uL (1.0-4.8); ABS Monocytes 0.5 10^3/uL (0.0-0.9); ABS Neutrophils 5.1 10^3/uL (1.5-7.6); ABS Nucleated RBC 0.01 10^3/ul; Eosinophil % 1.4 %; Hematocrit 25.9 % (35-45); Lymphocyte % 19.9 %; Mean Corpuscular Hemoglobin 33.1 pg (27-33); Mean Corpuscular Hgb Conc 34.7 g/dL (31-36); Mean Corpuscular Volume 95.3 fL (80-97); Mean Platelet Volume 7.3 fL (7.5-11.2); Nucleated Red Blood Cells % 0.1 %/100WBC (0.0-0.8); Platelet Count 196 10^3/uL (150-450); Red Blood Count 2.72 10^6/uL (3.63-4.92); Red Cell Distribution Width 13.5 % (12-17); White Blood Count 7.1 10^3/uL (3.8-11.8)
[2024-02-16 10:02] VITALS: BP 138/83
== END 2024-02-16 13:19 | disposition home or self-care (01) | DRG 541 ==
LOC: MCHOBOUT 10:24 → MCHOB 12:52